=== PATIENT | male | born 1980 | race Two or more races ===

== ENCOUNTER 2021-09-10 17:25 | Emergency (ER) | payer BC, OTHER ==
[~2021-09-10] VITALS: Ht 185.4 cm; Wt 136.1 kg
[2021-09-10 17:36] VITALS: BP 135/87
== END 2021-09-10 22:40 | disposition left against medical advice (07) ==
LOC: ER 17:25
DX: S90.31XA Contusion of right foot, initial encounter (principal); Z53.29 Procedure and treatment not carried out because of patient's decision for other reasons; E11.9 Type 2 diabetes mellitus without complications; I10 Essential (primary) hypertension; X58.XXXA Exposure to other specified factors, initial encounter; Y93.89 Activity, other specified; Y92.89 Other specified places as the place of occurrence of the external cause; Y99.8 Other external cause status
CPT/HCPCS: 93971